=== PATIENT | male | born 1985 | race Caucasian/White ===

== ENCOUNTER 2017-04-15 14:39 | Outpatient (CLI) | payer OTHER ==
[~2017-04-15] VITALS: Ht 180.3 cm; Wt 87.7 kg
[2017-04-15 14:48] VITALS: BP 140/63; PULSE 83; RESP 16; Ht 180.3 cm; Wt 87.7 kg
--- NOTE | 2017-04-15 16:15 | PN ---
Date/Time of Note Date/Time of Note DATE: 04/15/17 TIME: 16:10 Outpatient Progress Note Chief Complaint Fatigue/neck pain/left arm pain/ HPI Fatigue/patient feel generalized weakness and tiredness, going on for last few weeks, patient feels severely tired, compared to before energy level 3 out of 10 , no history of thyroid problem, no history of any viral infection, Neck pain/patient has a pain in her neck, patient had stiffness of neck while playing golf lasted for 2 weeks, and patient has still slight neck discomfort, mostly on the left side, no other injuries, Left arm pain, patient has left arm pain and discomfort, slight tingling numbness, especially when patient does not move hands for long time, Review of Systems Const: No Fever, no chills, no Wt. loss, severe fatigue, normal appetite, no diaphoresis. Eyes: No pain, no discharge, no redness, no visual change, no foreign body. ENT: No pain, no bleeding, no congestion, no sore throat, no dysphagia, no discharge or rhinitis. Lymph: No adenopathy, no tender nodes, no lymphedema. Resp: No SOB, no cough, no sputum, no wheezing, no chest pain. CV: No chest pain, no palpitaions, no JUNG, no PND, no edema. GI: Normal appetite, no pain, no nausea, no vomiting, no diarrhea, no blood, no constipation. : No frequency, no urgency, no dysuria, no hematuria, no flank pain, no discharge, no bleeding. Musc: Neck pain, more on the left side, no back pain, no knee pain, no restricted ROM. Skin: No rash, no skin lesions, no erythema, no laceration, no bruising, no pruritus. Neuro: No AMOR, no dizziness, no syncope, no seizure, no focal-weakness. Patient feel generalized weakness and tiredness, Endo: No polyuria, no polydypsia, no dry-skin, no temp-intolerance. Psych: No hallucinations, no depression, no anxiety, no suicidal ideation. Ext: No edema, no pain, no ulcer, no weakness no phlebitis,. Physical Exam Vital Signs Date Time Temp Pulse Resp B/P Pulse Ox O2 Delivery O2 Flow Rate FiO2 04/15/17 14:48 98.0 83 16 140/63 99 Room Air General Appearance: A 32 year-old male who appears well-developed, well- nourished, in no acute distress. HEENT: Head normocephalic, atraumatic. Pupils equal, round, reactive to light and accommodate. Sclerae are no jaundice. Nasal turbinates pink without erythema or nasal discharge. Mucous membranes pink and moist without lesions. Oropharynx clear without any exudate or discharge. NECK: Supple. Left-sided neck discomfort, trachea midline, No thyromegaly, No cervical lymphadenopathy, No mass, No carotid bruits, No JVD, Carotid pulses 2+ bilaterally. PULMONARY: Clear to auscultaion bilaterally, No retractions, Chest expansion symmetric bilaterally, no rales, no ronchi, no dulness on percussion. CARDIAC: Normal SI and S2, Regular rate and rythm, no murmur, gallop, or rub. GASTROINTESTINAL: Abdomen is soft, non-tender, Non Rigid, No distention, Positive bowel sounds x4 quadrants, Liver normal. SKIN: Warm, dry, no rash, no bruise, no echmosis. EXTREMITIES: Bilateral lower extremities normal, no edema, no phlabitus, pulse palpable, no contracture. MUSCULOSKELETAL: Spine Normal, Non-tender, Normal range of motion, No swelling, no deformity, no clubbing, or cyanosis, the patient has no edema to bilateral lower extremities, dorsalis pedis pulses palpable bilaterally. NEUROLOGIC: The patient is awake, alert, oriented, responding to yes/no questions appropriately, moving all extremities, cranial nerve intact, normal strenght, normal power, normal coordination, normal gait. 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
== END 2017-04-15 16:29 | disposition home or self-care (01) ==
LOC: DCC 14:39
PROVIDERS: ATTEND Internal Medicine
DX: R53.83 Other fatigue (principal); M54.2 Cervicalgia; M79.602 Pain in left arm

== ENCOUNTER 2017-04-29 11:23 | Outpatient (CLI) | payer OTHER ==
[~2017-04-29] VITALS: Ht 180.3 cm; Wt 88.6 kg
[2017-04-29 11:24] VITALS: BP 159/79; PULSE 83; RESP 16; Ht 180.3 cm; Wt 88.6 kg
--- NOTE | 2017-04-29 12:27 | PN ---
Date/Time of Note Date/Time of Note DATE: 04/29/17 TIME: 12:19 Outpatient Progress Note Chief Complaint Severe fatigue/labile hypertension/sinus tachycardia/ HPI Severe fatigue/patient feel severe fatigue, generalized weakness tiredness, unable to do much activity, sitting on the sofa for almost whole day, Labile hypertension/no headache or dizziness or lightheadedness or syncope, Sinus tachycardia/patient has sinus tachycardia, according to him patient was seen in [facility], patient heart rate was 170, by the time he reached the ER it was 130, and highest heart rate in the belly press was 106, patient had palpitation, no syncope, no lightheadedness, generalized weakness and severe fatigue, Review of Systems Const: No Fever, no chills, no Wt. loss, severe fatigue, normal appetite, no diaphoresis. Eyes: No pain, no discharge, no redness, no visual change, no foreign body. ENT: No pain, no bleeding, no congestion, slight sore throat, no dysphagia, no discharge or rhinitis. Lymph: No adenopathy, no tender nodes, no lymphedema. Resp: Occasional slight SOB, no cough, no sputum, no wheezing, no chest pain. CV: No chest pain, no palpitaions, no JUNG, no PND, no edema. GI: Normal appetite, no pain, no nausea, no vomiting, no diarrhea, no blood, no constipation patient feel bloated, and feels like lower abdominal distention, feels like , : No frequency, no urgency, no dysuria, no hematuria, no flank pain, no discharge, no bleeding. Musc:back pain, slightly better, neck pain, no knee pain, no restricted ROM. Skin: No rash, no skin lesions, no erythema, no laceration, no bruising, no pruritus. Neuro: No AMOR, no dizziness, no syncope, no seizure, no focal-weakness. Endo: No polyuria, no polydypsia, no dry-skin, patient feel generalized weakness , moderately severe, emp-intolerance. Psych: No hallucinations, no depression, no anxiety, no suicidal ideation. Ext: No edema, no pain, no ulcer, no weakness. Physical Exam Vital Signs Date Time Temp Pulse Resp B/P Pulse Ox O2 Delivery O2 Flow Rate FiO2 04/29/17 11:24 98.1 83 16 159/79 96 Room Air General Appearance: A [] 32 year-old male who appears well-developed, well- nourished, in no acute distress. HEENT: Head normocephalic, atraumatic. Pupils equal, round, reactive to light and accommodate. Sclerae are no jaundice. Nasal turbinates pink without erythema or nasal discharge. Mucous membranes pink and moist without lesions. Oropharynx clear without any exudate or discharge. NECK: Supple. Trachea midline, No thyromegaly, No cervical lymphadenopathy, No mass, No carotid bruits, No JVD, Carotid pulses 2+ bilaterally. PULMONARY: Clear to auscultaion bilaterally, No retractions, Chest expansion symmetric bilaterally, no rales, no ronchi, no dulness on percussion. CARDIAC: Normal SI and S2, Regular rate and rythm, no murmur, gallop, or rub. GASTROINTESTINAL: Abdomen is soft, minimal discomfort, Non Rigid, No distention , Positive bowel sounds x4 quadrants, Liver normal. SKIN: Warm, dry, no rash, no bruise, no echmosis. EXTREMITIES: Bilateral lower extremities normal, no edema, no phlabitus, pulse palpable, no contracture. MUSCULOSKELETAL: Spine Normal, Non-tender, Normal range of motion, No swelling, no deformity, no clubbing, or cyanosis, the patient has no edema to bilateral lower extremities, dorsalis pedis pulses palpable bilaterally. NEUROLOGIC: The patient is awake, alert, oriented, responding to yes/no questions appropriately, moving all extremities, cranial nerve intact, normal strenght, normal power, normal coordination, normal gait. Allergies Coded Allergies: No Known Allergy (Unverified , 04/09/17) PMH No change Social Hx No change Family Hx No change Assessment/Plan Impression Severe fatigue/labile hypertension/sinus tachycardia/nonspecific multiple complaints, Plan Patient was recently seen in [facility], patient heart rate at home was 170, by the time he reaches in room air hospital it was 130, I am trying to get record from [address] [place] [address], Patient's heart rate has been 106 highest at [facility] per record, patient also blood pressure slightly elevated on constantly, Will start metoprolol 25 mg p.o. daily, and see if able to control the blood pressure and heart rate, Side effect explained, if any side effect to stop it and maybe we can change the medication to either clonidine or any other substitute which is approved by primary care physician, Patient to see primary care physician, Patient was also told to go to neurologist for EMG, so we will try to contact insurance, need to see if we can get authorization for EMG and also to see neurologist, When patient went to ER at [facility] patient was advised to get Holter monitor, will request cardiology and Holter monitor, Patient ESR was 2, which is normal, Patient encouraged to follow with the primary care physician, Medications Home Meds No Active Prescriptions or Reported Meds HALEIGH CABRERA MD Apr 29, 2017 12:27
== END 2017-04-29 16:33 | disposition home or self-care (01) ==
LOC: DCC 11:23
PROVIDERS: ATTEND Internal Medicine
DX: R53.83 Other fatigue (principal); I10 Essential (primary) hypertension; R00.0 Tachycardia, unspecified

== ENCOUNTER 2017-06-07 10:26 | Day surgery (SDC) | payer OTHER ==
[~2017-06-07] VITALS: Ht 180.3 cm; Wt 89.1 kg
[2017-06-07 10:49] VITALS: Ht 180.3 cm; Wt 89.1 kg
[2017-06-07 12:00] VITALS: BP 129/67; RESP 12
--- NOTE | 2017-06-09 10:16 | GILP ---
DATE OF PROCEDURE: 06/07/2017 PROCEDURE PERFORMED: 1. Esophagogastroduodenoscopy and biopsy. 2. Colonoscopy and biopsy. SURGEON: Catalina Dougherty MD PREOPERATIVE DIAGNOSES: 1. Abdominal pain. 2. Chronic diarrhea. 3. Rectal bleeding. POSTOPERATIVE DIAGNOSES: 1. Gastritis with erosions. 2. Gastric mucosal biopsies were taken for Helicobacter pylori test. 3. Small bowel biopsies were taken to rule out celiac disease. 4. Colonoscopy all the way to the cecum and into the terminal ilium. 5. Normal terminal ileum. 6. Random biopsies were taken to rule out microscopic colitis. 7. Internal hemorrhoids. INDICATION: Mr. Bertrand Cooper is a 32-year-old male patient, who had upper abdominal pain not responding to therapy. The patient also had chronic diarrhea and rectal bleeding. The patient was scheduled for endoscopy and colonoscopy for further evaluation. The procedures and possible complications were well-explained to the patient. The patient understood and consented to the procedures. DESCRIPTION OF PROCEDURE: Under the influence of anesthesia, the gastroscope was carefully introduced into the esophagus. Under direct vision, it was advanced to the stomach into the pylorus into the duodenal bulb and descending duodenum. Findings - Esophagus: Mucosa was normal. Stomach: The patient had gastritis. Gastric mucosal biopsies were taken for Helicobacter pylori test. Duodenum was normal. Small bowel biopsies were taken to rule out celiac disease. The colonoscope was carefully introduced in the rectum and under direct vision, it was advanced all the way to the cecum and into the ileocecal valve into the terminal ileum. The terminal ilium was normal. Colonic mucosa was normal. Random biopsies were taken to rule out microscopic colitis. The patient was noted to have internal hemorrhoids. He tolerated the procedures very well. There was no complication from the procedure. At the end of the procedure, he was awake with stable vital signs and he was discharged home in the care of his family. IMPRESSION: Please see postop diagnoses. PLAN: 1. Omeprazole 40 mg p.o. every a.m. 2. Anusol HC 2.5 percent cream nightly p.r.n. 3. Await histopathology reports. Dictated By: MD BAO Lawson/sonido/savanna /Document#: [id number]
== END 2017-06-07 18:11 | disposition home or self-care (01) ==
LOC: GIL 10:26
PROVIDERS: ATTEND Internal Medicine Gastroenterology
DX: K29.60 Other gastritis without bleeding (principal); K64.8 Other hemorrhoids
CPT/HCPCS: 43239; 45380; 87081; 88305; Z7610